=== PATIENT | female | born 1945 | race Caucasian/White ===

== ENCOUNTER 2017-12-19 20:01 | Emergency (ER) | payer OTHER, MEDICARE ==
[~2017-12-19] VITALS: Ht 152.4 cm; Wt 90.9 kg
[~2017-12-19 20:01] MED LIST: ASCORBIC ACID500 M3 PO; ASPIR-TRIN325 M1 PO; BENICAR40 MG PO; BISACODYL SUPP10 MG PR; BISACODYL5 MG PO; CARVEDILOL12.5 MG PO; CELEBREX200 MG PO; CELEXA20 MG PO; CHILD ASPIRIN81 M1 PO; COREG25 M1 PO; CYCLOBENZAPRINE10 MG PO; Cardura PO; Coreg PO; DOXAZOSIN MESYLA2 MG PO; DOXAZOSIN MESYLA4 MG PO; ENDOCET 5-3251 EACH PO; ESTRADIOL1 MG PO; Estrace PO; FEOSOL325 MG PO; FOLIC ACID1 MG PO; HYDROCODON-ACE1 EAC7 PO; K-DUR20 MEQ PO; LASIX40 MG PO; NAPROSYN500 MG PO; OXYCODONE HCL5 MG PO; Omega III EPA + DHA PO; OxyCONTIN PO; PERCOCET 5/31 TABLET PO; PLAVIX75 MG PO; PLETAL100 MG PO; PRAVACHOL40 MG PO; Pletal PO; QUALAQUIN324 MG PO; QUININE SULFAT324 MG PO; SENNA-TIME S T1 EACH PO; SENNA8.6 MG PO; SENOKOT S,PE1 TABLET PO; SOMA350 MG PO; Soma PO; THERAGRAN1 TABLET PO; TRAMADOL HCL100 MG PO; TRICOR145 MG PO; VALIUM5 MG PO; Vicodin,Lortab 5/500 PO; ZOLPIDEM TARTRAT5 MG PO
[2017-12-19 23:53] VITALS: BP 161/88
== END 2017-12-19 23:53 | disposition home or self-care (01) ==
LOC: EME 20:01
DX: S00.83XA Contusion of other part of head, initial encounter (principal); M25.562 Pain in left knee; R42 Dizziness and giddiness; W01.0XXA Fall on same level from slipping, tripping and stumbling without subsequent striking against object, initial encounter; I10 Essential (primary) hypertension; K21.9 Gastro-esophageal reflux disease without esophagitis; F41.9 Anxiety disorder, unspecified; Z79.02 Long term (current) use of antithrombotics/antiplatelets; Z79.82 Long term (current) use of aspirin; Z90.49 Acquired absence of other specified parts of digestive tract; Z91.040 Latex allergy status; Z88.5 Allergy status to narcotic agent; Z88.8 Allergy status to other drugs, medicaments and biological substances
CPT/HCPCS: 70450; 70486; 72125; 72170; 73564; 99281; 99284